=== PATIENT | male | born 1985 | race Caucasian/White ===

== ENCOUNTER → 2019-04-16 10:13 | Outpatient (CLI) | payer OTHER, MEDICAID, SELFPAY ==
[2019-04-16 11:03] LABS: Add Manual Diff / Slide Review NO; Basophils Absolute Auto 0 /uL (0-100); Basophils Percent Auto 0.5 % (0-2); Eosinophils Absolute Auto 300 /uL (0-450); Eosinophils Percent Auto 3.1 % (2-4); Hematocrit 43.3 % (41-53); Hemoglobin 14.9 g/dL (13.5-17.5); Lymphocytes Absolute Auto 2000 /uL (1100-4500); Mean Corpuscular HGB Conc 34.3 % (30-36); Mean Corpuscular Hemoglobin 31.4 PG (26-34); Mean Corpuscular Volume 91.6 fL (80-100); Monocytes Absolute Auto 700 /uL (0-900); Monocytes Percent Auto 8.9 % (3-14); Neutrophils Absolute Auto 5300 /uL (1500-7000); Neutrophils Percent Auto 63.5 % (50-75); Platelet Count 270 X10^3/uL (150-400); Red Blood Cell Count 4.72 X10^6/uL (4.5-5.9); Red Cell Distribution Width 14.1 % (11.6-14.8); White Blood Cell Count 8.4 X10^3/uL (4.5-11.0)
[2019-04-16 11:12] LABS: Alanine Aminotransferase 37 IU/L (<50); Albumin 4.4 g/dL (3.5-5.0); Albumin Globulin Ratio 1.8 (1.0-2.8); Alkaline Phosphatase 65 U/L (38-126); Aspartate Aminotransferase 35 IU/L (17-59); Blood Urea Nitrogen 13 mg/dL (9-20); Calcium 9.6 mg/dL (8.4-10.2); Carbon Dioxide 29 mmol/L (22-32); Chloride 104 mmol/L (98-107); Cholesterol 265 mg/dL (140-199); Estimated Glomerular Filt Rate > 60.0 mL/min (>60); Globulin 2.5 g/dL (1.7-4.1); Glucose 93 mg/dL (70-100); HDL Cholesterol 41 mg/dL (40-60); HEMOLYSIS < 15 (0-50); LDL Cholesterol Calculated 205 mg/dL (<100); Potassium 4.4 mmol/L (3.4-5.1); Sodium 139 mmol/L (137-145); Total Protein 6.9 g/dL (6.3-8.2); Triglycerides 93 mg/dL (35-150)
== END ==
PROVIDERS: PCP Family Medicine; Visit Provider Family Medicine
DX: F41.1 Generalized anxiety disorder (principal); T88.7XXA Unspecified adverse effect of drug or medicament, initial encounter
CPT/HCPCS: 36415; 80053; 80061; 85025

== ENCOUNTER → 2020-06-04 10:46 | Outpatient (CLI) | payer OTHER, MEDICAID, SELFPAY ==
[2020-06-04 13:47] LABS: Alanine Aminotransferase 38 IU/L (<50); Albumin 4.4 g/dL (3.5-5.0); Albumin Globulin Ratio 1.7 (1.0-2.8); Alkaline Phosphatase 76 U/L (38-126); Aspartate Aminotransferase 35 IU/L (17-59); BUN Creatinine Ratio 14.4 (6-22); Bilirubin Total 1.1 mg/dL (0.2-1.3); Blood Urea Nitrogen 14 mg/dL (9-20); Calcium 9.5 mg/dL (8.4-10.2); Carbon Dioxide 27 mmol/L (22-32); Chloride 105 mmol/L (98-107); Cholesterol 255 mg/dL (140-199); Estimated Glomerular Filt Rate > 60.0 mL/min (>60); Globulin 2.6 g/dL (1.7-4.1); Glucose 85 mg/dL (70-100); HDL Cholesterol 47 mg/dL (40-60); HEMOLYSIS < 15 (0-50); LDL Cholesterol Calculated 191 mg/dL (<100); Potassium 4.3 mmol/L (3.4-5.1); Sodium 137 mmol/L (137-145); Triglycerides 85 mg/dL (35-150)
[2020-06-04 13:49] LABS: Add Manual Diff / Slide Review NO; Basophils Absolute Auto 0 /uL (0-100); Basophils Percent Auto 0.3 % (0-2); Eosinophils Absolute Auto 200 /uL (0-450); Eosinophils Percent Auto 2.7 % (2-4); Hematocrit 45.9 % (41-53); Hemoglobin 15.5 g/dL (13.5-17.5); Lymphocytes Absolute Auto 2100 /uL (1100-4500); Lymphocytes Percent Auto 23.6 % (25-40); Mean Corpuscular HGB Conc 33.7 % (30-36); Mean Corpuscular Hemoglobin 31.6 PG (26-34); Mean Corpuscular Volume 93.9 fL (80-100); Monocytes Absolute Auto 800 /uL (0-900); Monocytes Percent Auto 8.4 % (3-14); Neutrophils Absolute Auto 5900 /uL (1500-7000); Platelet Count 267 X10^3/uL (150-400); Red Blood Cell Count 4.89 X10^6/uL (4.5-5.9)
== END ==
PROVIDERS: PCP Family Medicine; Referring Provider Family Medicine; Visit Provider Family Medicine
DX: F20.9 Schizophrenia, unspecified (principal); Z51.81 Encounter for therapeutic drug level monitoring
CPT/HCPCS: 36415; 80053; 80061; 85025

== ENCOUNTER → 2023-02-06 11:05 | Outpatient (CLI) | payer OTHER, MEDICAID, SELFPAY ==
[2023-02-06 12:45] LABS: Add Manual Diff / Slide Review NO; Basophils Absolute Auto 100 /uL (0-100); Basophils Percent Auto 0.5 % (0-2); Eosinophils Absolute Auto 300 /uL (0-450); Eosinophils Percent Auto 2.8 % (2-4); Hematocrit 45.1 % (41-53); Hemoglobin 15.7 g/dL (13.5-17.5); Lymphocytes Absolute Auto 2200 /uL (1100-4500); Lymphocytes Percent Auto 21.5 % (25-40); Mean Corpuscular HGB Conc 34.8 % (30-36); Mean Corpuscular Hemoglobin 31.8 PG (26-34); Mean Corpuscular Volume 91.3 fL (80-100); Monocytes Absolute Auto 700 /uL (0-900); Neutrophils Absolute Auto 7000 /uL (1500-7000); Neutrophils Percent Auto 68.2 % (50-75); Platelet Count 280 X10^3/uL (150-400); Red Blood Cell Count 4.94 X10^6/uL (4.5-5.9); Red Cell Distribution Width 13.4 % (11.6-14.8); White Blood Cell Count 10.3 X10^3/uL (4.5-11.0)
[2023-02-06 13:25] LABS: Alanine Aminotransferase 35 IU/L (<50); Albumin 4.4 g/dL (3.5-5.0); Albumin Globulin Ratio 1.8 (1.0-2.8); Alkaline Phosphatase 67 U/L (38-126); Aspartate Aminotransferase 32 IU/L (17-59); BUN Creatinine Ratio 10.3 (6-22); Bilirubin Total 1.6 mg/dL (0.2-1.3); Blood Urea Nitrogen 10 mg/dL (9-20); Calcium 10.1 mg/dL (8.4-10.2); Carbon Dioxide 26 mmol/L (22-32); Chloride 103 mmol/L (98-107); Cholesterol 221 mg/dL (140-199); Estimated Glomerular Filt Rate > 60 mL/min (>60); Globulin 2.4 g/dL (1.7-4.1); Glucose 86 mg/dL (70-100); HDL Cholesterol 46 mg/dL (40-60); HEMOLYSIS < 15 (0-50); LDL Cholesterol Calculated 161 mg/dL (<100); Potassium 4.5 mmol/L (3.4-5.1); Sodium 137 mmol/L (137-145); Total Protein 6.8 g/dL (6.3-8.2); Triglycerides 69 mg/dL (35-150)
== END ==
PROVIDERS: PCP Family Medicine; Referring Provider Family Medicine; Visit Provider Family Medicine
DX: E78.2 Mixed hyperlipidemia (principal); F20.9 Schizophrenia, unspecified
CPT/HCPCS: 36415; 80053; 80061; 85025

== ENCOUNTER → 2024-01-31 15:35 | Outpatient (CLI) | payer OTHER, MEDICAID, SELFPAY ==
[2024-01-31 16:12] LABS: Hematocrit 45.4 % (41-53); Hemoglobin 15.3 g/dL (13.5-17.5); Mean Corpuscular HGB Conc 33.6 % (30-36); Mean Corpuscular Hemoglobin 31.3 PG (26-34); Mean Corpuscular Volume 93.3 fL (80-100); Platelet Count 306 X10^3/uL (150-400); Red Blood Cell Count 4.87 X10^6/uL (4.5-5.9); Red Cell Distribution Width 13.9 % (11.6-14.8); White Blood Cell Count 12.3 X10^3/uL (4.5-11.0)
[2024-01-31 16:33] LABS: Alanine Aminotransferase 23 IU/L (<50); Albumin 4.5 g/dL (3.5-5.0); Albumin Globulin Ratio 1.9 (1.0-2.8); Alkaline Phosphatase 76 U/L (38-126); Aspartate Aminotransferase 28 IU/L (17-59); BUN Creatinine Ratio 10.4 (6-22); Bilirubin Total 1.3 mg/dL (0.2-1.3); Blood Urea Nitrogen 11 mg/dL (9-20); Calcium 9.9 mg/dL (8.4-10.2); Carbon Dioxide 23 mmol/L (22-32); Chloride 107 mmol/L (98-107); Cholesterol 263 mg/dL (140-199); Estimated Glomerular Filt Rate > 60 mL/min (>60); Globulin 2.4 g/dL (1.7-4.1); Glucose 100 mg/dL (70-100); HDL Cholesterol 46 mg/dL (40-60); HEMOLYSIS < 15 (0-50); LDL Cholesterol Calculated 193 mg/dL (<100); Sodium 138 mmol/L (137-145); Total Protein 6.9 g/dL (6.3-8.2); Triglycerides 119 mg/dL (35-150)
[2024-02-01 16:42] LABS: HIV 1 & 2 Ab/Ag 4th Gen Combo NEGATIVE (NEGATIVE); Hep C Virus Ab w/Reflex Quant NEGATIVE s/c (NEGATIVE)
== END ==
PROVIDERS: PCP Family Medicine; Referring Provider Family Medicine; Visit Provider Family Medicine
DX: Z00.00 Encounter for general adult medical examination without abnormal findings (principal); F17.200 Nicotine dependence, unspecified, uncomplicated; E78.2 Mixed hyperlipidemia; F20.9 Schizophrenia, unspecified
CPT/HCPCS: 36415; 80053; 80061; 85027; 86803; 87389

== ENCOUNTER → 2024-11-22 13:01 | Outpatient (CLI) | payer OTHER, SELFPAY ==
--- NOTE | 2024-11-22 13:03 | DI.RAD.S_ITS ---
PROCEDURE: XR LUMBAR SPINE 2-3V INDICATIONS: low back pain TECHNIQUE: 3 views of the lumbar spine were acquired. COMPARISON: None. FINDINGS: Bones: 5 [id number] vertebrae are present. [id number] L5-S1 disc height loss with adjacent endplate sclerosis. There is normal bony alignment. No vertebral body compression fractures. No suspicious bony lesions. Soft tissues: Overlying bowel gas pattern is normal. No suspicious soft tissue calcifications. IMPRESSION: Mild degenerative change without evidence of acute bony abnormality. Dictated by: Marlon Schwab M.D. on 11/22/2024 at 21:47 Approved by: Marlon Schwab M.D. on 11/22/2024 at 21:50
== END ==
PROVIDERS: Family Provider Family Medicine; PCP Family Medicine; Referring Provider Family Medicine; Visit Provider Family Medicine
DX: M47.817 Spondylosis without myelopathy or radiculopathy, lumbosacral region (principal); M54.50 Low back pain, unspecified
CPT/HCPCS: 72100

== ENCOUNTER → 2024-11-26 16:19 | Outpatient (CLI) | payer OTHER, SELFPAY ==
[2024-11-26 16:53] LABS: Add Manual Diff / Slide Review YES; Hematocrit 28.5 % (41-53); Hemoglobin 9.9 g/dL (13.5-17.5); Mean Corpuscular HGB Conc 34.8 % (30-36); Mean Corpuscular Hemoglobin 28.9 PG (26-34); Mean Corpuscular Volume 83.0 fL (80-100); Platelet Count 795 X10^3/uL (150-400)
[2024-11-26 17:10] LABS: Band Neutrophils Percent 2.0 % (3-7); Basophils Percent Manual 1.0 % (0-1); Eosinophils Percent Manual 2.0 % (2-4); Lymphocytes Percent Manual 7.0 % (25-45); Monocytes Percent Manual 6.0 % (2-11); Neutrophils Absolute Manual 24696 /uL (3000-5900); Segmented Neutrophils Percent 82.0 % (38-70); Total Cells Counted 100
[2024-11-26 17:14] LABS: RBC Morphology Normal Morphology
[2024-11-26 17:39] LABS: Alanine Aminotransferase 41 IU/L (<50); Albumin 3.0 g/dL (3.5-5.0); Albumin Globulin Ratio 1.0 (1.0-2.8); Alkaline Phosphatase 153 U/L (38-126); Blood Urea Nitrogen 15 mg/dL (9-20); Calcium 9.2 mg/dL (8.4-10.2); Carbon Dioxide 25 mmol/L (22-32); Chloride 98 mmol/L (98-107); Cholesterol 87 mg/dL (140-199); Estimated Glomerular Filt Rate > 60 mL/min (>60); Globulin 2.9 g/dL (1.7-4.1); Glucose 139 mg/dL (70-99); HDL Cholesterol 19 mg/dL (40-60); HEMOLYSIS < 15 (0-50); Potassium 4.8 mmol/L (3.4-5.1); Sodium 133 mmol/L (137-145); Total Protein 5.9 g/dL (6.3-8.2); Triglycerides 79 mg/dL (35-150)
== END ==
PROVIDERS: Family Provider Family Medicine; PCP Family Medicine; Referring Provider Family Medicine; Visit Provider Family Medicine
DX: E78.2 Mixed hyperlipidemia (principal); F20.9 Schizophrenia, unspecified; M79.89 Other specified soft tissue disorders
CPT/HCPCS: 36415; 80053; 80061; 85007; 85025

== ENCOUNTER 2024-11-28 14:02 | Emergency (ER) | payer OTHER, SELFPAY ==
[2024-11-28] VITALS (11 sets, daily range): BP systolic 104–122; BP diastolic 63–77; PULSE 87–120; RESP 18; TEMP 37.2; O2SAT 97–99; BMI 17.4
--- NOTE | 2024-11-28 14:31 | ED_ITS ---
HPI - Skin/Abscess/Foreign Bdy General Chief complaint: Skin/Abscess/Foreign Body Stated complaint: growth on left side Time Seen by Provider: 11/28/24 14:09 Source: patient Mode of arrival: Ambulatory Limitations: no limitations History of Present Illness HPI narrative: 39-year-old gentleman with a history of schizophrenia, hyperlipidemia presents with large painful growing mass over his right flank area. He states it started approximately 2 weeks ago as a small bump is becoming increasingly painful was seen by his primary care physician on the with blood work ordered. Patient has been complaining of almost 2 weeks of low back pain which has been unusual for him. Pain has been significant enough that he has been losing weight. He has been taking medications. He is accompanied by his mother to the ER today who helps with interpretation and further details. He noted that in the last 24-48 hours it has become red, hot and now seems to be draining just to the right side of the intergluteal cleft Related Data Previous Rx's ?Medication ?Instructions ?Recorded olanzapine 10 mg disintegrating See Rx Instructions .R oute 01/31/24 tablet .COMPLEX #60 tabs rosuvastatin 40 mg tablet (Crestor) 40 mg PO DAILY #10 0 tabs 02/04/24 cyclobenzaprine 5 mg tablet 5 mg PO BID PRN muscle spa sm #30 10/30/24 tabs naproxen 500 mg tablet 500 mg PO BID PRN pain #60 t abs 10/30/24 Allergies Allergy/AdvReac Type Severity Reaction Status Date / Time No Known Drug Allergies Allergy Verified 11/26/24 15:57 Review of Systems Review of Systems Narrative: Pertinent positive and negative findings as per HPI Patient History Medical History Tobacco dependence Mixed hyperlipidemia Schizophrenia Family History Grandfather CVA (cerebral vascular accident) Father CAD (coronary artery disease) Grandmother Cancer Grandfather Cancer Grandmother History of heart disease Social History marital status: unmarried,single Smoking Status: Current every day smoker Tobacco: How many years used: 20 quit status: considering quitting alcohol intake: former (quit 2017) substance use type: marijuana (daily, smoking couple hits here and there ) Smoking Status: Current every day smoker tobacco type: cigarettes Exam Initial Vital Signs Initial Vital Signs: Vital Signs Temperature 99 F 11/28/24 14:06 Pulse Rate 120 H 11/28/24 14:06 Respiratory Rate 18 11/28/24 14:06 Blood Pressure 120/75 11/28/24 14:06 Pulse Oximetry 97 11/28/24 14:06 Oxygen Delivery Method Room Air 11/28/24 14:06 General: Pale, thin, chronically ill-appearing in obvious pain. HEENT: Moist mucous membranes, normal sclera with reactive pupils, Respiratory: Lungs are clear to auscultation, no wheezing no rales no rhonchi. Full and symmetrical air movement Cardiac: Tachycardic but otherwise Regular rate and rhythm no murmurs no bruits Abdomen: Soft, nontender, no rebound or guarding, no flank pain Skin: Has a 10 x 12 cm abscess over the right flank/sacroiliac area. There was some drainage with a tract that is a couple cm distant from the mass itself that is to the right of the intergluteal cleft. Is warm, somewhat fluctuant an obvious and painful Neurologic: Grossly neurologically intact with no obvious asymmetries or abnormalities Psych: Cooperative, somewhat flat affect and poor eye contact but does respond to direct questions in his clearly not responding to internal stimuli at this time Course Orders Ordered: ED Orders 11/28/24 14:29 Blood Culture Stat 11/28/24 14:30 CT abdomen pelvis w con Stat Complete Blood Count AUTO DIFF Stat Comprehensive Metabolic Panel Stat Lactate (Lactic Acid) Stat Wound Culture and Gram Stain Stat Hydromorphone HCl (Hydromorphone Hcl 0.5 Mg/0.5 Ml Syringe) 0.5 mg IV Q15MIN PRN PRN Reason: Pain, Olanzapine (Olanzapine 2.5 Mg Tablet) 10 mg PO BID STEPHANIE Ondansetron HCl (Ondansetron 4 Mg/2 Ml Inj) 4 mg IV NOW PRN PRN Reason: nausea Discontinued Medications Sodium Chloride (Normal Saline 0.9%) 1,000 mls @ 1,000 mls/hr IV BOLUS ONE Stop: 11/28/24 15:28 Last Infusion: 11/28/24 16:43 Dose: Infused Piperacillin Sod/Tazobactam (Sod 4.5 gm/ Sodium Chloride) 100 mls @ 200 mls/hr IV NOW ONE Stop: 11/28/24 15:24 Last Infusion: 11/28/24 16:40 Dose: Infused Vancomycin HCl 1,000 mg/ (Sodium Chloride) 250 mls @ 250 mls/hr IV NOW ONE Stop: 11/28/24 16:29 Last Admin: 11/28/24 16:43 Dose: 250 mls/hr Ketorolac Tromethamine (Ketorolac 30 Mg/Ml Vial) 15 mg IV NOW ONE Stop: 11/28/24 14:30 Last Admin: 11/28/24 15:08 Dose: 15 mg Vancomycin HCl (Vancomycin Per Pharmacy) 1 request MISC NOW ONE Stop: 11/28/24 15:25 Last Admin: 11/28/24 16:44 Dose: Not Given Vital Signs Vital signs: Vital Signs - 8 hr 11/28/24 14:06 11/28/24 15:05 11/28/24 15:05 Temperature 99 F Pulse Rate 120 H 96 H Respiratory Rate 18 Blood Pressure 120/75 119/72 Pulse Oximetry 97 97 Oxygen Delivery Method Room Air 11/28/24 15:30 11/28/24 15:30 11/28/24 16:00 Temperature Pulse Rate 92 H Respiratory Rate Blood Pressure 122/77 119/73 Pulse Oximetry 98 Oxygen Delivery Method 11/28/24 16:00 11/28/24 16:30 11/28/24 16:30 Temperature Pulse Rate 87 91 H Respiratory Rate Blood Pressure 114/72 Pulse Oximetry 97 97 Oxygen Delivery Method 11/28/24 17:00 11/28/24 17:00 11/28/24 17:30 Temperature Pulse Rate 95 H Respiratory Rate Blood Pressure 109/71 115/73 Pulse Oximetry 97 Oxygen Delivery Method 11/28/24 17:30 Temperature Pulse Rate 90 Respiratory Rate Blood Pressure Pulse Oximetry 97 Oxygen Delivery Method MDM - Skin/Abscess/Foreign Bdy Lab Data 11/28/24 14:40 11/28/24 14:40 Labs: Lab Results 11/28/24 Range/Units 14:40 WBC 32.1 H* (4.5-11.0) X10^3/uL RBC 3.27 L (4.5-5.9) X10^6/uL Hgb 9.3 L (13.5-17.5) g/dL Hct 27.0 L (41-53) % MCV 82.8 (80-100) fL MCH 28.5 (26-34) PG MCHC 34.5 (30-36) % RDW 15.5 H (11.6-14.8) % Plt Count 768 H (150-400) X10^3/uL Neut % (Auto) Not Reportable Lymph % (Auto) Not Reportable [place] % (Auto) Not Reportable Eos % (Auto) Not Reportable Baso % (Auto) Not Reportable Lymph # (Auto) Not Reportable [place] # (Auto) Not Reportable Baso # (Auto) Not Reportable Total Counted 100 Seg Neutrophils % 85.0 H (38-70) % Lymphocytes % (Manual) 10.0 L (25-45) % Monocytes % (Manual) 3.0 (2-11) % Eosinophils % (Manual) 2.0 (2-4) % Neutrophils # (Manual) 26852 H (9559-3672) /uL RBC Morphology Normal morphology Sodium 134 L (137-145) mmol/L Potassium 4.1 (3.4-5.1) mmol/L Chloride 100 (98-107) mmol/L Carbon Dioxide 29 (22-32) mmol/L BUN 16 (9-20) mg/dL Creatinine 0.65 L (0.66-1.25) mg/dL Estimated GFR > 60 (>60) mL/min BUN/Creatinine Ratio 24.6 H (6-22) Glucose 118 H (70-99) mg/dL Lactate 1.2 (0.7-2.1) mmol/L Calcium 8.6 (8.4-10.2) mg/dL Total Bilirubin 0.4 (0.2-1.3) mg/dL AST 56 (17-59) IU/L ALT 60 H (<50) IU/L Alkaline Phosphatase 178 H (38-126) U/L Total Protein 6.3 (6.3-8.2) g/dL Albumin 2.9 L (3.5-5.0) g/dL Globulin 3.4 (1.7-4.1) g/dL Albumin/Globulin Ratio 0.9 L (1.0-2.8) Imaging Data CT scan - abdomen/pelvis: Radiologist's Impression: PROCEDURE: CT ABDOMEN PELVIS W CON INDICATIONS: large abscess right flank area with drainage tract to right TECHNIQUE: After the administration of intravenous contrast, axial sections acquired from the lung bases to the pubic symphysis. Coronal and sagittal reformats were performed. For radiation dose reduction, the following was used: automated exposure control, adjustment of mA and/or kV according to patient size. COMPARISON: [facility], CR, XR LUMBAR SPINE 2-3V, 11/22/2024, 13:03. FINDINGS: Image quality: Diagnostic. Lower Chest: No significant findings. ABDOMEN: Liver: No solid mass. Gallbladder: Collapsed. Biliary ducts: No biliary dilation. Pancreas: No ductal dilation. Spleen: Size is within normal limits. Adrenal Glands: No adrenal nodules. Kidneys and Ureters: No hydronephrosis. No solid mass. No complex renal cystic lesion which requires follow up. Stomach and Bowel: The stomach is decompressed at the time of this study, limiting its evaluation. No dilated loops of small bowel are seen. No significant colonic abnormality is seen. Peritoneum: No abnormal intraperitoneal fluid. No free air. Ventral Wall: No significant ventral hernia. Abdominal Nodes: No retroperitoneal or mesenteric adenopathy by size criteria. Vessels: Aorta and inferior vena cava are normal in size. PELVIS: Pelvic Organs: Unremarkable. Bladder: No bladder wall thickening, accounting for underdistention. Pelvic Nodes: No frankly enlarged lymph nodes can be seen within the iliac chains are within the groins. Miscellaneous: No inguinal hernias are seen. There is an irregular multi septated rim enhancing soft tissue collection within the right lower back and right medial gluteal region. There is also involvement within the presacral region. The right gluteal fluid collection measures 11.4 x 8.1 cm in greatest axial dimension, with a craniocaudal extent of 16.5 cm. The presacral fluid collection measures 5.7 x 5.4 cm in greatest axial dimension, with a craniocaudal extent of 5.8 cm. Bones: No aggressive osseous abnormality. IMPRESSION: Extensive abscess collections seen involving the right lower back/right medial gluteal region, with also involvement more deeply within the presacral region. Dictated by: Bryson Henry M.D. on 11/28/2024 at 14:39 MDM Narrative Medical decision making narrative: 39-year-old gentleman presents with developing abscess over his right lower back. It started with some mild midline abdominal pain progress to a lump over the low back and over the last 2 days has turned into a red warm very painful lesion that now has a draining tract. This is off midline it is not a pilonidal cyst. The patient does have a significant leukocytosis with white count today at 32.1. He has an anemia new in comparison to blood work from a year ago without obvious blood loss at this time. Hemoglobin is 9.3. Platelet count is elevated at 768. Chemistries show normal renal function. Slightly elevated AST and ALT CT scan of the abdomen and pelvis shows Extensive abscess collections seen involving the right lower back/right medial gluteal region, with also involvement more deeply within the presacral region. There was no evidence of sepsis, need for pressors or oxygen support. He is started on Zosyn and vancomycin. Heart rate has come down nicely from 120-90 with a L of fluid and control of anxiety and pain. Reviewed with our general surgeon, given the presacral involvement his recommendation was transfer to facility with larger surgical team available. [id number] discussed with [facility]. Beds were available. They will have their general surgeon look at the CT scan that has been electronically transmitted to with the anticipation of transfer for surgical intervention. [address] Salinas, general surgeon. We will accept the patient to [facility]. We will plan ED to ED transfer.. Patient is updated on findings, concerns and need for transfer. Mom is concerned that his schizophrenia will decompensate and I reassured her that we will continue his b.i.d. 10 mg of olanzapine. 645 discussed findings with ED attending Ivania Vaughan. We will go BLS to [facility] emergency department. Patient is mother quite relieved they will not need to go all the way to [place]. Patient has taken his own 10 mg olanzapine as he was becoming more anxious. We will give him another 1 mg of Ativan to help with the overall anxiety. He is safe for transfer Discharge Plan Departure Patient Disposition: [facility] Clinical Impression: Abscess, Schizophrenia Leukocytosis Qualifiers: Leukocytosis type: unspecified Qualified Code(s): D72.829 - Elevated white blood cell count, unspecified Prescriptions: No Action rosuvastatin [Crestor] 40 mg tablet 40 mg PO DAILY Qty: 100 3RF Rx Instructions: stop pravastatin olanzapine 10 mg tablet,disintegrating See Rx Instructions .ROUTE .COMPLEX Qty: 60 11RF Dose Instruction: DISSOLVE ONE TABLET IN THE MOUTH TWICE DAILY Rx Instructions: DISSOLVE ONE TABLET IN THE MOUTH TWICE DAILY. naproxen 500 mg tablet 500 mg PO BID PRN (Reason: pain) Qty: 60 11RF Rx Instructions: with food cyclobenzaprine 5 mg tablet 5 mg PO BID PRN (Reason: muscle spasm) Qty: 30 1RF Referrals: Catarino Kimble DO [Primary Care Provider, Family Practice]
[2024-11-28 15:03] LABS: Hematocrit 27.0 % (41-53); Hemoglobin 9.3 g/dL (13.5-17.5); Mean Corpuscular HGB Conc 34.5 % (30-36); Mean Corpuscular Hemoglobin 28.5 PG (26-34); Mean Corpuscular Volume 82.8 fL (80-100); Platelet Count 768 X10^3/uL (150-400)
[2024-11-28 15:06] LABS: Add Manual Diff / Slide Review YES
[2024-11-28] MEDS: KETOROLAC 30 MG/ML VIAL 15 MG IV (15:08)
[2024-11-28 15:22] LABS: Alanine Aminotransferase 60 IU/L (<50); Albumin 2.9 g/dL (3.5-5.0); Albumin Globulin Ratio 0.9 (1.0-2.8); Alkaline Phosphatase 178 U/L (38-126); Blood Urea Nitrogen 16 mg/dL (9-20); Calcium 8.6 mg/dL (8.4-10.2); Carbon Dioxide 29 mmol/L (22-32); Chloride 100 mmol/L (98-107); Estimated Glomerular Filt Rate > 60 mL/min (>60); Globulin 3.4 g/dL (1.7-4.1); Glucose 118 mg/dL (70-99); HEMOLYSIS < 15 (0-50); Lactate (Lactic Acid) 1.2 mmol/L (0.7-2.1); Potassium 4.1 mmol/L (3.4-5.1); Sodium 134 mmol/L (137-145); Total Protein 6.3 g/dL (6.3-8.2)
[2024-11-28] MEDS: SODIUM CHLORIDE 0.9% 1,000 ML 1000 ML IV (15:42)
[2024-11-28] MEDS: PIPERACILLIN/TAZO 4.5 GM in SODIUM CHLORIDE 0.9% 100 ML IV (15:43)
[2024-11-28 15:49] LABS: Eosinophils Percent Manual 2.0 % (2-4); Lymphocytes Percent Manual 10.0 % (25-45); Monocytes Percent Manual 3.0 % (2-11); Neutrophils Absolute Manual 27285 /uL (3000-5900); RBC Morphology Normal Morphology; Segmented Neutrophils Percent 85.0 % (38-70); Total Cells Counted 100
[2024-11-28] MEDS: VANCOMYCIN 1,000 MG in SODIUM CHLORIDE 0.9% 250 ML 250 MG IV (16:43)
== END 2024-11-28 19:59 | disposition short-term general hospital (02) ==
PROVIDERS: Emergency Provider Emergency Medicine; Family Provider Family Medicine; PCP Family Medicine
DX: L02.211 Cutaneous abscess of abdominal wall (principal); F20.9 Schizophrenia, unspecified; D72.829 Elevated white blood cell count, unspecified
CPT/HCPCS: 36415; 74177; 80053; 83605; 85007; 85025; 87040; 87070; 87075; 87205; 96365; 96367; 96375; 99284; J1885; J2543; Q9967

== ENCOUNTER → 2024-12-09 16:13 | Outpatient (CLI) | payer OTHER, SELFPAY ==
[2024-12-09 17:04] LABS: Add Manual Diff / Slide Review NO; Hematocrit 25.7 % (41-53); Hemoglobin 8.6 g/dL (13.5-17.5); Lymphocytes Absolute Auto 2300 /uL (1100-4500); Mean Corpuscular HGB Conc 33.7 % (30-36); Mean Corpuscular Hemoglobin 29.5 PG (26-34); Mean Corpuscular Volume 87.7 fL (80-100); Platelet Count 721 X10^3/uL (150-400)
[2024-12-09 17:58] LABS: Macrocytosis 1+; RBC Morphology See
[2024-12-09 18:03] LABS: Anisocytosis 1+
== END ==
PROVIDERS: Family Provider Family Medicine; PCP Family Medicine; Referring Provider Surgery; Visit Provider Surgery
DX: L02.31 Cutaneous abscess of buttock (principal)
CPT/HCPCS: 36415; 85025

== ENCOUNTER → 2025-01-31 10:48 | Outpatient (CLI) | payer OTHER, SELFPAY ==
[2025-01-31 12:03] LABS: Hematocrit 36.7 % (41-53); Hemoglobin 11.9 g/dL (13.5-17.5); Mean Corpuscular HGB Conc 32.4 % (30-36); Mean Corpuscular Hemoglobin 27.0 PG (26-34); Mean Corpuscular Volume 83.4 fL (80-100); Platelet Count 493 X10^3/uL (150-400)
[2025-01-31 12:32] LABS: Alanine Aminotransferase 19 IU/L (<50); Albumin 4.2 g/dL (3.5-5.0); Albumin Globulin Ratio 1.4 (1.0-2.8); Alkaline Phosphatase 91 U/L (38-126); Blood Urea Nitrogen 18 mg/dL (9-20); Calcium 9.9 mg/dL (8.4-10.2); Carbon Dioxide 26 mmol/L (22-32); Chloride 101 mmol/L (98-107); Estimated Glomerular Filt Rate > 60 mL/min (>60); Globulin 3.1 g/dL (1.7-4.1); Glucose 79 mg/dL (70-99); HEMOLYSIS < 15 (0-50); Potassium 4.5 mmol/L (3.4-5.1); Sodium 137 mmol/L (137-145); Total Protein 7.3 g/dL (6.3-8.2)
== END ==
PROVIDERS: PCP Family Medicine; Referring Provider Family Medicine; Visit Provider Family Medicine
DX: L02.31 Cutaneous abscess of buttock (principal); F20.9 Schizophrenia, unspecified; D64.9 Anemia, unspecified
CPT/HCPCS: 36415; 80053; 85027